=== PATIENT | male | born 1955 | race Caucasian/White ===

== ENCOUNTER 2020-02-25 14:13 | Inpatient (IN) | payer MEDICARE, SELFPAY ==
[2020-02-27 03:21] VITALS: BMI 21.8
[2020-02-27] MEDS: 0.9 % Sodium Chloride 1,000 ML 100 ML IVCONT (10:00)
[2020-02-27] MEDS: vancomycin HCL 1,000 MG in 0.9 % Sodium Chloride 250 ML 180 MG IV (11:10)
[2020-02-28] VITALS (7 sets, daily range): BP systolic 132–159; BP diastolic 64–78; PULSE 67–73; RESP 18–20; TEMP 36.5–37.2; O2SAT 95–98
[2020-02-28] MEDS: Piperacillin Sodium/Tazobactam 3.375 GM in 0.9 % Sodium Chloride 50 ML IV ×5 (01:15→23:43)
[2020-02-28] MEDS: oxyCODONE HCl Immed Release 5 MG TABLET 10 MG PO ×5 (01:15→20:30)
[2020-02-28] MEDS: Gabapentin 300 MG CAPSULE PO ×3 (01:15→17:40)
[2020-02-28] MEDS: Heparin Sodium,Porcine 5,000 UNIT/ML VIAL 5000 UNIT SUBCUT ×2 (06:30→19:09)
[2020-02-28] MEDS: 0.9 % Sodium Chloride 1,000 ML 100 ML IVCONT ×2 (09:25→20:15)
[2020-02-28] MEDS: 0.9 % Sodium Chloride Flush 3 ML SYRINGE 2 ML IVFLUSH ×2 (09:26→17:42)
--- NOTE | 2020-02-28 13:13 | PM.IMPN ---
Subjective Subjective Date of Service: 02/28/20 Interval History: seen and examined foot pain but otherwise okay would like to go home (over going to SNF) Constitutional Constitutional: Denies chills and Denies fever(s) ENT Ears, Nose, Mouth, and Throat: Denies neck pain Cardiovascular Cardiovascular: Denies chest pain and Denies dyspnea Respiratory Respiratory: Denies cough and Denies dyspnea Gastrointestinal Gastrointestinal: Denies abdominal pain, Denies diarrhea and Denies nausea Musculoskeletal Musculoskeletal: Denies neck pain Neurologic Neurologic: Denies focal weakness Physical Exam Vital Signs and I&O and Narrative: Vital Signs and I&O: Vital Signs Temp 97.7 F 02/28/20 11:37 Pulse 67 02/28/20 11:37 Resp 18 02/28/20 11:37 BP 159/75 H 02/28/20 11:37 Pulse Ox 98 02/28/20 11:37 Intake & Output 02/27/20 02/28/20 02/28/20 18:59 06:59 18:59 Intake Total 1440 / 1440 530 / 530 Output Total 350 / 350 Balance 1090 / 1090 530 / 530 Urine Output (Aver age ml/kg/hr) 0.42 0.42 Intake: Intake, Oral [place] unt 120 / 120 480 / 480 Intake, IV Amoun t 1320 / 1320 50 / 50 Piperacillin S odium/Tazobactam 50 / 50 50 / 50 3.375 gm In 0. 9 % Sodium Chloride 50 ml @ 100 mls/hr IV Q6H [facility] Rx#:[id number] vancomycin HCL 1,000 mg In 0.9 270 / 270 % Sodium Chlor skyla 250 ml @ 180 mls/hr IV Q12H [facility] Rx#: [id number] 0.9 % Sodium C hloride 1,000 ml 1000 / 1000 @ 100 mls/hr I VCONT .Q10H [facility] Rx#:[id number] Output: Output, Urine Am ount 350 / 350 Other: Meal Refused No NPO No Breakfast % Eate n 25% Lunch % Eaten 100% Urine Urinal Urine Color Pale Yellow Body Mass Index 21.8 Const: General: cooperative, healthy appearing and no acute distress Eyes: Pupils: Equal, round and reactive pupils present Neck: Neck: Yes supple Chest: Chest palpation & inspection: normal inspection of the chest Resp: Effort & Inspection: normal respiratory effort and able to speak in complete sentences Auscultation: clear to auscultation bilaterally Cardio: Jugular venous distension: no JVD Rhythm: regular rhythm Heart sounds: S1 normal heart sound present and S2 normal heart sound present GI: Inspection: Yes normal to inspection Palpation (GI): Soft to palpation Auscultation: normal bowel sounds Skin: Full body images: 1. wound Neuro: Cranial nerves: Yes Equal, round and reactive pupils present Motor exam (neuro): Other motor observations present ( no motor deficit) Objective Data Current Medications Generic Name Dose Route Start Last Admin Trade Name Freq PRN Reason Stop Dose Admin Acetaminophen 650 mg 02/28/20 00:00 Acetaminophen 325 Mg Tablet PO Q6H PRN Pain,Mild(Scale 1-3)/Fever Aspirin 81 mg 02/28/20 18:00 Aspirin Enteric Coated 81 Mg Tablet.Dr PO DAILY@1800 [facility] Gabapentin 300 mg 02/28/20 02:00 02/28/20 09:22 Gabapentin 300 Mg Capsule PO 300 mg TID@0200,1000,1800 [facility] Administration Heparin Sodium (Porcine) 5,000 unit 02/28/20 07:00 02/28/20 06:30 Heparin Sodium,Porcine 5,000 Unit/Ml Vial SUBCUT 5,000 unit Q12H [facility] Administration Piperacillin Sod/Tazobactam 50 mls @ 100 mls/hr 02/28/20 07:00 02/28/20 09:16 Sod 3.375 gm/ Sodium Chloride IV Infused Q6H [facility] Infusion Vancomycin HCl 1,000 mg/ 270 mls @ 180 mls/hr 02/28/20 00:00 02/28/20 05:58 Sodium Chloride IV Infused Q12H [facility] Infusion Sodium Chloride 1,000 mls @ 100 mls/hr 02/28/20 00:00 02/28/20 09:25 Ns IVCONT 100 mls/hr .Q10H [facility] Administration Lisinopril 30 mg 02/28/20 19:00 Lisinopril 10 Mg Tablet PO DAILY@1900 [facility] Protocol Morphine Sulfate 4 mg 02/28/20 12:14 Morphine Sulfate 4 Mg/Ml Cartridge IVPUSH Q3H PRN Pain, Severe (Pain Scale 7-10) Naloxone HCl 0.2 mg 02/28/20 00:00 Naloxone Hcl 0.4 Mg/Ml Vial IVPUSH Q2M PRN Excessive sedation or RR < 8 Ondansetron HCl 4 mg 02/28/20 00:00 Ondansetron Hcl 4 Mg/2 Ml Vial IVPUSH Q8H PRN Nausea and Vomiting Oxycodone HCl 5 mg 02/28/20 13:11 Oxycodone Hcl Immed Release 5 Mg Tablet PO Q4H PRN Pain, Moderate (Pain Scale 4-6 Oxycodone HCl 10 mg 02/28/20 02:00 02/28/20 09:24 Oxycodone Hcl Immed Release 5 Mg Tablet PO 10 mg TID@0200,1000,1800 [facility] Administration Oxycodone HCl 10 mg 02/28/20 00:01 Oxycodone Hcl Immed Release 5 Mg Tablet PO Q4H PRN Pain, Severe (Pain Scale 7-10) Senna 17.2 mg 02/28/20 00:00 Sennosides 8.6 Mg Tablet PO BEDTIME PRN Constipation Sodium Chloride 2 ml 02/28/20 00:00 02/28/20 09:26 0.9 % Sodium Chloride Flush 3 Ml Syringe IVFLUSH 2 ml QSHIFT [facility] Administration Labs CBC & Chem 7: 02/27/20 05:59 02/27/20 05:59 Labs: Laboratory Results - last 24 hr 02/25/20 02/25/20 02/25/20 10:49 10:49 10:49 MCV 94.5 MCH 31.4 MCHC 33.2 RDW Coeff of Mihir 12.6 Plt Count 260 MPV 9.9 Immature Gran % (Auto) 0.4 Neut % (Auto) 71.0 Lymph % (Auto) 15.5 L Richardson % (Auto) 7.9 Eos % (Auto) 4.1 H Baso % (Auto) 1.1 Abs Immat Gran (auto) 0.03 Absolute Lymphs (auto) 1.2 Absolute Monos (auto) 0.6 Absolute Eos (auto) 0.3 Absolute Basos (auto) 0.1 Absolute Nucleated RBC 0.000 Nucleated RBC % (auto) 0.0 Absolute Neutrophils 5.4 ESR PT INR APTT Bicarbonate 28 Anion Gap 15 Estimated Creat Clear 75.4 Est GFR (Non-Af Amer) > 60 Random Glucose 100 Fasting Glucose Lactic Acid 1.1 Calcium C-Reactive Protein 0.21 Vancomycin Trough 02/25/20 02/25/20 02/26/20 10:49 10:49 06:07 MCV MCH MCHC RDW Coeff of Mihir Plt Count MPV Immature Gran % (Auto) Neut % (Auto) Lymph % (Auto) Richardson % (Auto) Eos % (Auto) Baso % (Auto) Abs Immat Gran (auto) Absolute Lymphs (auto) Absolute Monos (auto) Absolute Eos (auto) Absolute Basos (auto) Absolute Nucleated RBC Nucleated RBC % (auto) Absolute Neutrophils ESR 9 PT 11.9 INR 1.0 APTT 33.1 Bicarbonate 29 Anion Gap 14 Estimated Creat Clear 61.9 Est GFR (Non-Af Amer) > 60 Random Glucose Fasting Glucose 94 Lactic Acid Calcium 9.1 C-Reactive Protein Vancomycin Trough 02/26/20 02/26/20 02/27/20 06:07 22:42 05:59 MCV 95.2 MCH 31.2 MCHC 32.8 RDW Coeff of Mihir 12.6 Plt Count 224 MPV 10.0 Immature Gran % (Auto) 0.2 Neut % (Auto) 48.5 Lymph % (Auto) 31.6 Richardson % (Auto) 10.1 Eos % (Auto) 8.0 H Baso % (Auto) 1.6 Abs Immat Gran (auto) 0.01 Absolute Lymphs (auto) 1.9 Absolute Monos (auto) 0.6 Absolute Eos (auto) 0.5 H Absolute Basos (auto) 0.1 Absolute Nucleated RBC 0.000 Nucleated RBC % (auto) 0.0 Absolute Neutrophils 3.0 ESR PT INR APTT Bicarbonate 28 Anion Gap 14 Estimated Creat Clear 65.2 Est GFR (Non-Af Amer) > 60 Random Glucose 87 Fasting Glucose Lactic Acid Calcium C-Reactive Protein Vancomycin Trough 14.8 02/27/20 02/27/20 05:59 05:59 MCV 96.4 MCH 30.9 MCHC 32.1 RDW Coeff of Mihir 12.5 Plt Count 216 MPV 10.4 Immature Gran % (Auto) 0.3 Neut % (Auto) 49.5 Lymph % (Auto) 30.9 Richardson % (Auto) 9.8 Eos % (Auto) 8.2 H Baso % (Auto) 1.3 Abs Immat Gran (auto) 0.02 Absolute Lymphs (auto) 2.0 Absolute Monos (auto) 0.6 Absolute Eos (auto) 0.5 H Absolute Basos (auto) 0.1 Absolute Nucleated RBC 0.000 Nucleated RBC % (auto) 0.0 Absolute Neutrophils 3.1 ESR PT 10.5 L INR 0.9 APTT 32.4 Bicarbonate Anion Gap Estimated Creat Clear Est GFR (Non-Af Amer) Random Glucose Fasting Glucose Lactic Acid Calcium C-Reactive Protein Vancomycin Trough Progress Note: A&P (1) Osteomyelitis: Status: Acute (2) Peripheral arterial disease: Status: Acute Assessment and Plan: this is a 64-year-old male with a past medical history of PID, hypertension who was admitted for nonhealing wound of the right lower extremity 1. cellulitis/osteomyelitis / nonhealing wound Continue broad-spectrum IV antibiotics MRI showing early osteo, will need long-term antibiotics --- ID input, Consult placed And follow renal function while on vancomycin, follow vanc trough Will place PICC line 2. peripheral arterial disease status post angio with stent placement Continue aspirin vascular input appreciated 3. hypertension Continue home meds full code DVT prophylaxis, heparin
[2020-02-28] MEDS: vancomycin HCL 1,000 MG in 0.9 % Sodium Chloride 250 ML 250 MG IV (14:21)
--- NOTE | 2020-02-28 14:34 | MHC.CM.NN ---
nurse care manger note electronic medical record reviewed along with case discussed on multiple disciplinary rounds. met with patient he is aware that long-term iv antibiotics may be needed and he wiil need pic line placement , per documentation by the wound clinic physician on 02/27/20 (right heel arterial ulcer and has been treated by dr mena at the [facility] wound clinic. he has had revascularization stenting on 02/27/20, and had a mri showed right heel ulcer and early changes in the calcaneus bone cnsistent with ostemyelitis) per hospitlaist sam on final antibiotics recomendations and will need pic line placement discharge plan home with his [address] [facility] in[facility] home infusion referral to [facility] with catalina [phone] and elly mullen als consulted with briana meyer vna spoke with [facility] and they still have availablity for nurwsing to provide teqaching for iv antibiotics . transportation family patient to call pcp for post hospitlaization follow up, folow up with toribio davies i, folow up with dr amaro vascular follow up with [facility]
--- NOTE | 2020-02-28 14:40 | P.PNGS_ITS ---
Subjective Subjective Patient reports: no new complaints and feels better Interval history: patient is status post bilateral iliac artery stenting. He appears to be doing relatively well. Notes that the leg feels somewhat better. He notes that the ulcer site is less painful and tender to him. He is now for postprocedure followup. Physical Exam Vital Signs and I&O and Narrative: Vital Signs and I&O: Vital Signs Temp 97.7 F 02/28/20 11:37 Pulse 67 02/28/20 11:37 Resp 18 02/28/20 11:37 BP 159/75 H 02/28/20 11:37 Pulse Ox 98 02/28/20 11:37 Intake & Output 02/27/20 02/28/20 02/28/20 18:59 06:59 18:59 Intake Total 1440 / 1440 580 / 580 Output Total 350 / 350 300 / 300 Balance 1090 / 1090 280 / 280 Urine Output (Aver age ml/kg/hr) 0.42 0.36 Intake: Intake, Oral [place] unt 120 / 120 480 / 480 Intake, IV Amoun t 1320 / 1320 100 / 100 Piperacillin S odium/Tazobactam 50 / 50 100 / 100 3.375 gm In 0. 9 % Sodium Chloride 50 ml @ 100 mls/hr IV Q6H [facility] Rx#:[id number] vancomycin HCL 1,000 mg In 0.9 270 / 270 % Sodium Chlor skyla 250 ml @ 180 mls/hr IV Q12H [facility] Rx#: [id number] 0.9 % Sodium C hloride 1,000 ml 1000 / 1000 @ 100 mls/hr I VCONT .Q10H [facility] Rx#:[id number] Output: Output, Urine Am ount 350 / 350 300 / 300 Other: Meal Refused No NPO No Breakfast % Eate n 25% Lunch % Eaten 100% Urine Urinal Urine Color Pale Yellow Body Mass Index 21.8 Const: General: cooperative, healthy appearing and comfortable Neck: Neck: Yes normal visual inspection Chest: Chest palpation & inspection: normal inspection of the chest and normal palpation of entire chest wall Resp: Effort & Inspection: normal respiratory effort and able to speak in complete sentences Cardio: Rate: regular rate Rhythm: regular rhythm Heart sounds: S1 normal heart sound present and S2 normal heart sound present Peripheral pulses: other ( Bilateral DP signals) Skin: Wounds: wounds noted ( Achilles ulcer approximately quarter in size with overlying dry eschar and) Neuro: Cranial nerves: Yes CN's II-XII intact bilaterally Extrem: Right lower extremity: normal capillary refill Left lower extremity: normal capillary refill Psych: Appearance: grossly normal Mental Status: mental status grossly normal Progress Note: A&P Assessment and plan (1) Peripheral arterial disease: Status: Acute Assessment and Plan: patient is status post bilateral iliac artery stent placement. Will start patient on Plavix. The patient has tenuous runoff at best on the right lower extremity. He is at high risk for amputation. At the current time will try conservative management with IV antibiotics. He can follow up with us as an outpatient in 2-3 weeks. In addition would recommend [facility] at [facility] if [facility]. (2) Osteomyelitis: Status: Acute Assessment and Plan: Will need long-term IV antibiotics. Also may be a candidate for hyperbaric oxygen therapy as well by the [facility]. Fall Risk Details Current Medications: Current Medications Generic Name Dose Route Start Last Admin Trade Name Freq PRN Reason Stop Dose Admin Acetaminophen 650 mg 02/28/20 00:00 Acetaminophen 325 Mg Tablet PO Q6H PRN Pain,Mild(Scale 1-3)/Fever Aspirin 81 mg 02/28/20 18:00 Aspirin Enteric Coated 81 Mg Tablet.Dr PO DAILY@1800 [facility] Gabapentin 300 mg 02/28/20 02:00 02/28/20 09:22 Gabapentin 300 Mg Capsule PO 300 mg TID@0200,1000,1800 [facility] Administration Heparin Sodium (Porcine) 5,000 unit 02/28/20 07:00 02/28/20 06:30 Heparin Sodium,Porcine 5,000 Unit/Ml Vial SUBCUT 5,000 unit Q12H [facility] Administration Piperacillin Sod/Tazobactam 50 mls @ 100 mls/hr 02/28/20 07:00 02/28/20 14:38 Sod 3.375 gm/ Sodium Chloride IV Infused Q6H [facility] Infusion Vancomycin HCl 1,000 mg/ 270 mls @ 180 mls/hr 02/28/20 00:00 02/28/20 14:21 Sodium Chloride IV 250 mls/hr Q12H [facility] Administration Sodium Chloride 1,000 mls @ 100 mls/hr 02/28/20 00:00 02/28/20 09:25 Ns IVCONT 100 mls/hr .Q10H [facility] Administration Lisinopril 30 mg 02/28/20 19:00 Lisinopril 10 Mg Tablet PO DAILY@1900 [facility] Protocol Morphine Sulfate 4 mg 02/28/20 12:14 Morphine Sulfate 4 Mg/Ml Cartridge IVPUSH Q3H PRN Pain, Severe (Pain Scale 7-10) Naloxone HCl 0.2 mg 02/28/20 00:00 Naloxone Hcl 0.4 Mg/Ml Vial IVPUSH Q2M PRN Excessive sedation or RR < 8 Ondansetron HCl 4 mg 02/28/20 00:00 Ondansetron Hcl 4 Mg/2 Ml Vial IVPUSH Q8H PRN Nausea and Vomiting Oxycodone HCl 5 mg 02/28/20 13:11 Oxycodone Hcl Immed Release 5 Mg Tablet PO Q4H PRN Pain, Moderate (Pain Scale 4-6 Oxycodone HCl 10 mg 02/28/20 02:00 02/28/20 09:24 Oxycodone Hcl Immed Release 5 Mg Tablet PO 10 mg TID@0200,1000,1800 [facility] Administration Oxycodone HCl 10 mg 02/28/20 00:01 02/28/20 14:23 Oxycodone Hcl Immed Release 5 Mg Tablet PO 10 mg Q4H PRN Administration Pain, Severe (Pain Scale 7-10) Senna 17.2 mg 02/28/20 00:00 Sennosides 8.6 Mg Tablet PO BEDTIME PRN Constipation Sodium Chloride 2 ml 02/28/20 00:00 02/28/20 09:26 0.9 % Sodium Chloride Flush 3 Ml Syringe IVFLUSH 2 ml QSHIFT [facility] Administration Time Spent With Patient Time: Total time spent is greater than 50% in coordination of care (as documented) at patient's floor/unit and/or counseling patient: Time with patient: 15 - 24 minutes
[2020-02-28 14:58] LABS: Anion Gap 11 (12-20); Blood Urea Nitrogen 9 mg/dL (9-16); Calcium 8.7 mg/dL (8.4-10.2); Carbon Dioxide 29 mmol/L (22-29); Chloride 105 mmol/L (96-108); Creatinine Clr Calc Pharmacy 81.9; Estimated Glomerular Filt Rate > 60; Glucose Random 88 mg/dL (60-115); Potassium 3.4 mmol/l (3.3-5.1); Sodium 142 mmol/L (135-145)
[2020-02-28 15:02] LABS: Vancomycin Trough 9.3 mcg/mL (10.0-20.0)
[2020-02-28] MEDS: Clopidogrel Bisulfate 75 MG TABLET PO (16:26)
[2020-02-28] MEDS: Aspirin Enteric Coated 81 MG TABLET.DR PO (17:41)
[2020-02-28] MEDS: lisinopriL 10 MG TABLET 30 MG PO (19:22)
[2020-02-28] MEDS: Sennosides 8.6 MG TABLET 17.2 MG PO (20:38)
[2020-02-29] VITALS: BP 147/68; PULSE 75; RESP 17; TEMP 36.3; O2SAT 97
[2020-02-29 00:18] LABS: Vancomycin Trough 15.1 mcg/mL (10.0-20.0)
[2020-02-29] MEDS: vancomycin HCL 1,000 MG in 0.9 % Sodium Chloride 250 ML 180 MG IV (01:02)
[2020-02-29] MEDS: oxyCODONE HCl Immed Release 5 MG TABLET 10 MG PO ×4 (01:06→19:34)
[2020-02-29] MEDS: Gabapentin 300 MG CAPSULE PO ×3 (01:07→19:34)
[2020-02-29 04:00] VITALS: BP 152/69; PULSE 65; RESP 17; TEMP 36.8; TEMP 36.9; O2SAT 98
[2020-02-29] MEDS: Piperacillin Sodium/Tazobactam 3.375 GM in 0.9 % Sodium Chloride 50 ML IV ×2 (06:27→13:34)
[2020-02-29] MEDS: Heparin Sodium,Porcine 5,000 UNIT/ML VIAL 5000 UNIT SUBCUT ×2 (06:27→19:32)
[2020-02-29 08:00] VITALS: BP 162/73; PULSE 73; RESP 18; TEMP 37.2; O2SAT 96
[2020-02-29] MEDS: Clopidogrel Bisulfate 75 MG TABLET PO (09:42)
[2020-02-29 11:37] VITALS: BP 146/69; PULSE 68; RESP 18; TEMP 37; O2SAT 98
--- NOTE | 2020-02-29 11:56 | P.PNGS_ITS ---
Subjective Subjective Patient reports: no new complaints and still having pain Interval history: patient with nonhealing right lower extremity ulcer. He has had no interval issues. States that foot feels better and continues to have pain but is improved from prior. He does have underlying osteomyelitis. He is scheduled for PICC line placement. Physical Exam Vital Signs and I&O and Narrative: Vital Signs and I&O: Vital Signs Temp 98.6 F 02/29/20 11:37 Pulse 68 02/29/20 11:37 Resp 18 02/29/20 11:37 BP 146/69 H 02/29/20 11:37 Pulse Ox 98 02/29/20 11:37 Intake & Output 02/28/20 02/29/20 02/29/20 18:59 06:59 18:59 Intake Total 850 / 3546.667 2696.667 / 3546.66 7 50 / 50 Output Total 300 / 2000 1700 / 2000 Balance 550 / 1546.667 996.667 / 1546.667 50 / 50 Urine Output (Aver age ml/kg/hr) 0.36 0.48 0.48 Intake: Intake, Oral [place] unt 480 / 1080 600 / 1080 Intake, IV Amoun t 370 / 2466.667 2096.667 / 2466.66 7 50 / 50 Piperacillin S odium/Tazobactam 100 / 200 100 / 200 50 / 50 3.375 gm In 0. 9 % Sodium Chloride 50 ml @ 100 mls/hr IV Q6H [facility] Rx#:[id number] vancomycin HCL 1,000 mg In 0.9 270 / 540 270 / 540 % Sodium Chlor skyla 250 ml @ 180 mls/hr IV Q12H [facility] Rx#: [id number] 0.9 % Sodium C hloride 1,000 ml 1726.667 / 1726.66 7 @ 100 mls/hr I VCONT .Q10H [facility] Rx#:[id number] Output: Output, Urine Am ount 300 / 700 400 / 700 Output, Stool Am ount 1300 / 1300 Other: Meal Refused No NPO No Breakfast % Eate n 25% Lunch % Eaten 100% Urine Urinal Urine Color Deja Last Bowel Movem ent 02/25/20 Body Mass Index 21.8 Const: General: cooperative, healthy appearing and comfortable Neck: Carotids: no bruits Chest: Chest palpation & inspection: normal inspection of the chest and normal palpation of entire chest wall Resp: Effort & Inspection: normal respiratory effort and able to speak in complete sentences Cardio: Rate: regular rate Heart sounds: S1 normal heart sound present and S2 normal heart sound present Skin: Wounds: wounds noted ( Right lower extremity wound - quarter-size in Achilles area with dry esc) Progress Note: A&P Assessment and plan (1) Peripheral arterial disease: Status: Acute Assessment and Plan: patient has undergone bilateral iliac artery stenting. He will need to be discharged on Plavix 75 mg oral daily. In addition he will need long-term IV antibiotics. I did have an extended discussion with him as the patient has very poor runoff. He is at very high risk of amputation. I am able to the possibly offer him femoral endarterectomy. There is no bypass option possible as he has no named runoff vessels. he can follow up with us in approximately 2-3 weeks time thank you for allowing us to assist in his care. Fall Risk Details Current Medications: Current Medications Generic Name Dose Route Start Last Admin Trade Name Tika PRN Reason Stop Dose Admin Acetaminophen 650 mg 02/28/20 00:00 Acetaminophen 325 Mg Tablet PO Q6H PRN Pain,Mild(Scale 1-3)/Fever Aspirin 81 mg 02/28/20 18:00 02/28/20 17:41 Aspirin Enteric Coated 81 Mg Tablet. PO 81 mg DAILY@1800 [facility] Administration Clopidogrel Bisulfate 75 mg 02/28/20 14:50 02/29/20 09:42 Clopidogrel Bisulfate 75 Mg Tablet PO 75 mg DAILY [facility] Administration Gabapentin 300 mg 02/28/20 02:00 02/29/20 09:42 Gabapentin 300 Mg Capsule PO 300 mg TID@0200,1000,1800 [facility] Administration Heparin Sodium (Porcine) 5,000 unit 02/28/20 07:00 02/29/20 06:27 Heparin Sodium,Porcine 5,000 Unit/Ml Vial SUBCUT 5,000 unit Q12H [facility] Administration Piperacillin Sod/Tazobactam 50 mls @ 100 mls/hr 02/28/20 07:00 02/29/20 07:28 Sod 3.375 gm/ Sodium Chloride IV Infused Q6H [facility] Infusion Vancomycin HCl 1,000 mg/ 270 mls @ 180 mls/hr 02/28/20 00:00 02/29/20 03:02 Sodium Chloride IV Infused Q12H [facility] Infusion Sodium Chloride 1,000 mls @ 100 mls/hr 02/28/20 00:00 02/29/20 06:33 Ns IVCONT 0 mls/hr .Q10H [facility] Infusion Lisinopril 30 mg 02/28/20 19:00 02/28/20 19:22 Lisinopril 10 Mg Tablet PO 30 mg DAILY@1900 [facility] Administration Protocol Morphine Sulfate 4 mg 02/28/20 12:14 Morphine Sulfate 4 Mg/Ml Cartridge IVPUSH Q3H PRN Pain, Severe (Pain Scale 7-10) Naloxone HCl 0.2 mg 02/28/20 00:00 Naloxone Hcl 0.4 Mg/Ml Vial IVPUSH Q2M PRN Excessive sedation or RR < 8 Ondansetron HCl 4 mg 02/28/20 00:00 Ondansetron Hcl 4 Mg/2 Ml Vial IVPUSH Q8H PRN Nausea and Vomiting Oxycodone HCl 5 mg 02/28/20 13:11 Oxycodone Hcl Immed Release 5 Mg Tablet PO Q4H PRN Pain, Moderate (Pain Scale 4-6 Oxycodone HCl 10 mg 02/28/20 02:00 02/29/20 09:41 Oxycodone Hcl Immed Release 5 Mg Tablet PO 10 mg TID@0200,1000,1800 [facility] Administration Oxycodone HCl 10 mg 02/28/20 00:01 02/29/20 06:27 Oxycodone Hcl Immed Release 5 Mg Tablet PO 10 mg Q4H PRN Administration Pain, Severe (Pain Scale 7-10) Senna 17.2 mg 02/28/20 00:00 02/28/20 20:38 Sennosides 8.6 Mg Tablet PO 17.2 mg BEDTIME PRN Administration Constipation Sodium Chloride 2 ml 02/28/20 00:00 02/29/20 08:02 0.9 % Sodium Chloride Flush 3 Ml Syringe IVFLUSH Not Given QSHIFT [facility] Time Spent With Patient Time: Total time spent is greater than 50% in coordination of care (as documented) at patient's floor/unit and/or counseling patient: Time with patient: 25 - 35 minutes
[2020-02-29] MEDS: vancomycin HCL 1,000 MG in 0.9 % Sodium Chloride 250 ML 250 MG IV (12:09)
--- NOTE | 2020-02-29 13:06 | P.CNID_ITS ---
History of Present Illness Data of Consult Primary Care Provider: Aleah Tyler MD HPI He presents with discomfort posterior above Achilles tendon ulcer 1 cm Ulcer was present since June and patient has been using hydrogen peroxide He says ulcer originally started after wearing tight Uggs boots which were gift He has seen Wound Clinic last several weeks and has taken po Keflex 14 days with no improvement He has no fever or chills Review of Systems Review of Systems: Yes all other systems are reviewed and are negative Musculoskeletal: Musculoskeletal: Reports other (pain posterior tib /fib at ulcer site) Neurologic: Denies focal weakness [facility] Past Medical History Medical History (Updated 02/29/20 @ 13:14 by Leesa Patel MD) Peripheral arterial disease Meds Allergies Allergy/AdvReac Type Severity Reaction Status Date / Time ciprofloxacin [From CIPRO] AdvReac Mild WEAKNESS Verified 02/29/20 11:34 ARITHROMYCIN AdvReac Mild WEAKNESS Uncoded 02/29/20 11:34 Home Medications Medication Instructions Recorded Confirmed Type aspirin 81 mg PO DAILY@1800 02/27/20 02/27/20 History cilostazol 100 mg PO BID 02/27/20 02/27/20 History gabapentin 300 mg PO TID 02/27/20 02/27/20 History lisinopril 30 mg PO DAILY 02/27/20 02/27/20 History oxycodone 5 mg PO TID 02/27/20 02/27/20 History Physical Exam Vital Signs and I&O and Narrative: Vital Signs and I&O: Vital Signs Temp 98.6 F 02/29/20 11:37 Pulse 68 02/29/20 11:37 Resp 18 02/29/20 11:37 BP 146/69 H 02/29/20 11:37 Pulse Ox 98 02/29/20 11:37 Intake & Output 02/28/20 02/29/20 02/29/20 18:59 06:59 18:59 Intake Total 850 / 3546.667 2696.667 / 3546.66 7 50 / 50 Output Total 300 / 2000 1700 / 2000 800 / 800 Balance 550 / 1546.667 996.667 / 1546.667 -750 / -750 Urine Output (Aver age ml/kg/hr) 0.36 0.48 0.97 Intake: Intake, Oral Mar unt 480 / 1080 600 / 1080 Intake, IV Amoun t 370 / 2466.667 2096.667 / 2466.66 7 50 / 50 Piperacillin S odium/Tazobactam 100 / 200 100 / 200 50 / 50 3.375 gm In 0. 9 % Sodium Chloride 50 ml @ 100 mls/hr IV Q6H [facility] Rx#:[id number] vancomycin HCL 1,000 mg In 0.9 270 / 540 270 / 540 % Sodium Chlor skyla 250 ml @ 180 mls/hr IV Q12H [facility] Rx#: [id number] 0.9 % Sodium C hloride 1,000 ml 1726.667 / 1726.66 7 @ 100 mls/hr I VCONT .Q10H [facility] Rx#:[id number] Output: Output, Urine Am ount 300 / 700 400 / 700 800 / 800 Output, Stool Am ount 1300 / 1300 Other: Meal Refused No NPO No Breakfast % Eate n 25% Lunch % Eaten 100% Urine Urinal Urinal Urine Color Deja Last Bowel Movem ent 02/25/20 Body Mass Index 21.8 Const: General: cooperative and healthy appearing HENMT: Head: Yes normal to inspection Chest: Chest palpation & inspection: normal inspection of the chest Resp: Effort & Inspection: normal respiratory effort Cardio: Rate: regular rate GI: Inspection: Yes normal to inspection Extrem: Other: area one cm posterior right tib fib above achilles,clear and open Upper/lower leg/hip images: 1. Assessment and Plan (1) Peripheral arterial disease: Problem details: Prior stents and new stent lower extremities Status: Acute F/U Dr Palacios ,Vascular (2) Osteomyelitis: Problem details: non healing Status: Acute I V Ertapenem for 6 weeks
--- NOTE | 2020-02-29 13:32 | MHC.CM.PN ---
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 I EXPLAINED TO HIM THAT INTERVENTIONA RADIOLOGY SETS UP TIME FOR PIC INE PLACEMENT, AFTER THAT HE WILL NEED TO RECIVE THROUGH THE PIC LINE HIS IV ABX, ALSO FINAL ANTIBIOTICS TO BE RECOMENDED AND STILL NEED ABX SCRIPT IN ORDER TO PROCESS , CLINICAL UPDATE CALLED TO [facility] . 02/29/20 1;30PM I CALLED TO INTERVENTIONAL RADIOLGY NO TIME SET FOR THIS PATIENT HE IS A ADD ON FOR PIC LINE PLACEMENT .HE ALSO SERGEI NEED TO RECIVE HIS ABX THROUGH HIS PIC LINE , I STILL NEED THE ABX SCRIPT THEN SEND TO [facility] FOR PROCESSING AND CHECK CO PAY COST TO PATIENT AND TIME OF HOME DELIVERY AT THIS LATE HOUR HE WILL NOT BE DISCHARGED Demetris ROCHE SPOKE WITH HIS AT LENGTH AND REVIEWED THE DISCHARGE PLAN WITH HER , THE FOLLOW UP [facility] PATIENTS SERGEI CALL FOR APPROPRIATE TIME BETWEEN ABX AND HER SCHEDULE DISCHARGE PLAN HOME WITH NEW REFERRAL TO THE [facility] FOR NRUSING PIC LINE CHANGES , ABS DRAWS AND WOUND ASSESSMENT [facility] TO SUPPLY AL ABX /PIC LINE SUPPLIES AND PROVIDE HOME DELIVERY OF THEM DR GUEVARA VASCULAR- T ARRANGE APPT DATE TIME DR COTTON - TO ARRANGE DATE APPT TIME [facility]IENTS [facility] FOR APPOINTMENT DATE /TIME PATIENT ALSO INSTRUCTED TO CALL HIS PCP FOR [facility] WILL NEED SCRIPT FOR WALKER AND PATIENTS IS LOOKING INTO RENTING A WHEELCHAIR ARRANGE FOR DATE TIME OF APPT
[2020-02-29 16:13] VITALS: BP 134/72; PULSE 103; RESP 18; TEMP 37.1; O2SAT 98
--- NOTE | 2020-02-29 16:13 | P.PICC_ITS ---
PICC Line Insertion NPICC Diagnosis: OSTEOMYELITIS Indication: [facility] ANTIBIOTICS Pertinent Labs: REVIEWED Technique: Following informed consent including risks, benefits and alternatives and using sterile technique including cap and mask, sterile gown, glove and drape, the RIGHT arm was prepped and draped in the usual sterile fashion of full barrier technique with CHG. Following completion of [place] Protocol the skin and soft tissues were anesthetized with 1% Lidocaine plain. Using ultrasound guidance, BASILIC vein access was obtained WITH SINGLE ATTEMPT BY THIS RN. Over an 0.018 wire through peel-away sheath, a SINGLE LUMEN 4 INDONESIAN PICC line was positioned. Catheter length is 40 CM internal length, 0 CM external length, for a total trimmed length of 40 CM. The procedure was performed in IR ULTRASOUND. Tip verification was performed by Melchor Alston with Sandra 3CG. Tip located in SVC. Ultrasound was used to document vein patency and for needle entry. A formal ultrasound picture and cardiac rhythm strip was recorded. Vascular Machine Or Machinery Mechanic has released the line for use and it is currently dressed with a StatLock, Tegaderm, and CHG disc. Verification has been performed for blood return and line patency. Arm Circumference: 29 CM Equipment: [facility] POWER PICC SOLO Catheter Type: SINGLE LUMEN 4 INDONESIAN PICC Lot #: [id number]
--- NOTE | 2020-02-29 16:24 | HO.PM.IMPN ---
Subjective Subjective Date of Service: 02/29/20 Interval History: Persistent pain in the foot. PICC line today Review of Systems Gen: no fever Card: no chest pain GI: No n/v Muscular/sk: Pain in the right foot Physical Exam Vital Signs and I&O and Narrative: Vital Signs and I&O: Vital Signs Temp 98.8 F 02/29/20 16:13 Pulse 103 H 02/29/20 16:13 Resp 18 02/29/20 16:13 BP 134/72 02/29/20 16:13 Pulse Ox 98 02/29/20 16:13 Constitutional Awake and Alert, No apparent distress Neck Supple, No lymphadenopathy Cardiovascular RRR, No M/R/G, S1 S2, No S3 S4, No pedal edema Respiratory Lungs clear, No respiratory distress Gastrointestinal Non tender, Non-distended Skin right heell open wound, the foot is red and shiny and tender Neurological Alert & oriented x3 Psychological Appropriate affect Objective Data Current Medications Generic Name Dose Route Start Last Admin Trade Name Freq PRN Reason Stop Dose Admin Acetaminophen 650 mg 02/28/20 00:00 Acetaminophen 325 Mg Tablet PO Q6H PRN Pain,Mild(Scale 1-3)/Fever Aspirin 81 mg 02/28/20 18:00 02/28/20 17:41 Aspirin Enteric Coated 81 Mg Tablet. PO 81 mg DAILY@1800 [facility] Administration Clopidogrel Bisulfate 75 mg 02/28/20 14:50 02/29/20 09:42 Clopidogrel Bisulfate 75 Mg Tablet PO 75 mg DAILY VANGIE Administration Gabapentin 300 mg 02/28/20 02:00 02/29/20 09:42 Gabapentin 300 Mg Capsule PO 300 mg TID@0200,1000,1800 V[facility]IE Administration Heparin Sodium (Porcine) 5,000 unit 02/28/20 07:00 02/29/20 06:27 Heparin Sodium,Porcine 5,000 Unit/Ml Vial SUBCUT 5,000 unit Q12H VANGIE Administration Sodium Chloride 1,000 mls @ 100 mls/hr 02/28/20 00:00 02/29/20 06:33 Ns IVCONT 0 mls/hr .Q10H VANGIE Infusion Lisinopril 30 mg 02/28/20 19:00 02/28/20 19:22 Lisinopril 10 Mg Tablet PO 30 mg DAILY@1900 [facility] Administration Protocol Morphine Sulfate 4 mg 02/28/20 12:14 Morphine Sulfate 4 Mg/Ml Cartridge IVPUSH Q3H PRN Pain, Severe (Pain Scale 7-10) Naloxone HCl 0.2 mg 02/28/20 00:00 Naloxone Hcl 0.4 Mg/Ml Vial IVPUSH Q2M PRN Excessive sedation or RR < 8 Ondansetron HCl 4 mg 02/28/20 00:00 Ondansetron Hcl 4 Mg/2 Ml Vial IVPUSH Q8H PRN Nausea and Vomiting Oxycodone HCl 5 mg 02/28/20 13:11 Oxycodone Hcl Immed Release 5 Mg Tablet PO Q4H PRN Pain, Moderate (Pain Scale 4-6 Oxycodone HCl 10 mg 02/28/20 02:00 02/29/20 09:41 Oxycodone Hcl Immed Release 5 Mg Tablet PO 10 mg TID@0200,1000,1800 [facility] Administration Oxycodone HCl 10 mg 02/28/20 00:01 02/29/20 06:27 Oxycodone Hcl Immed Release 5 Mg Tablet PO 10 mg Q4H PRN Administration Pain, Severe (Pain Scale 7-10) Senna 17.2 mg 02/28/20 00:00 02/28/20 20:38 Sennosides 8.6 Mg Tablet PO 17.2 mg BEDTIME PRN Administration Constipation Sodium Chloride 2 ml 02/28/20 00:00 02/29/20 08:02 0.9 % Sodium Chloride Flush 3 Ml Syringe IVFLUSH Not Given QSHIFT [facility] Labs CBC & Chem 7: 02/27/20 05:59 02/28/20 13:56 Labs: Laboratory Results - last 24 hr 02/28/20 23:06 Vancomycin Trough 15.1 Assessment and Plan (1) Osteomyelitis: Problem details: non healing Status: Acute (2) Peripheral arterial disease: Problem details: Prior stents and new stent lower extremities Status: Acute Assessment and Plan: 64-year-old male with a past medical history of PID, hypertension who was admitted for nonhealing wound of the right lower extremity 1. cellulitis/osteomyelitis / nonhealing wound Continue broad-spectrum IV antibiotics MRI showing early osteo, will need long-term antibiotics --- ID input, Consult placed DC Vanco and Zosyn for Ertapenem PICC line today and likely home tomorrow, ID reccomend 6 weeks of Abx to follow up with Dr. Palacios and if not improving might need BKA 2. peripheral arterial disease status post angio with stent placement Continue aspirin vascular input appreciated 3. Hypertension Continue home meds full code DVT prophylaxis, heparin
--- NOTE | 2020-02-29 16:37 | MHC.CM.PN ---
nurse caregiver services home received script for invantz 1 gm q 24hrs and faxed to [facility] to run insurqance and check for any co pay to pTMIGUEL PITT LIASON CALLED ME AND INFORMED ME THAT THE COST WOULD BE $[phone] PER WEEK THE HOSPITAIST TO SEE IF HE COULD CHECK WITH DR COTTON TO SEE IF THEY COULD SUBSTITUTE ANOTHER LESS COSTLY MEDICATION CO WORKER INFORMED PATIENT OF THIS , AND I INFORMED airborne weapons technical manager chidi scott up tomorrow
[2020-02-29] MEDS: Ertapenem Sodium 1 GM in 0.9 % Sodium Chloride 50 ML IV (17:10)
[2020-02-29] MEDS: 0.9 % Sodium Chloride Flush 3 ML SYRINGE 2 ML IVFLUSH (17:11)
[2020-02-29] MEDS: 0.9 % Sodium Chloride 1,000 ML 100 ML IVCONT (17:11)
[2020-02-29 19:22] VITALS: BP 153/80; PULSE 88; TEMP 36.5; O2SAT 96
[2020-02-29] MEDS: lisinopriL 10 MG TABLET 30 MG PO (19:32)
[2020-02-29] MEDS: Aspirin Enteric Coated 81 MG TABLET.DR PO (19:33)
[2020-03-01] VITALS (8 sets, daily range): BP systolic 106–168; BP diastolic 57–81; PULSE 65–83; RESP 16–20; TEMP 36.2–36.6; O2SAT 95–97
[2020-03-01 00:19] LABS: Vancomycin Trough 14.8 mcg/mL (10.0-20.0)
[2020-03-01] MEDS: 0.9 % Sodium Chloride Flush 3 ML SYRINGE 2 ML IVFLUSH (00:37)
[2020-03-01] MEDS: Morphine Sulfate 4 MG/ML CARTRIDGE IVPUSH (00:51)
[2020-03-01] MEDS: oxyCODONE HCl Immed Release 5 MG TABLET 10 MG PO ×3 (02:03→18:26)
[2020-03-01] MEDS: Gabapentin 300 MG CAPSULE PO ×3 (02:03→18:27)
--- NOTE | 2020-03-01 04:29 | PC.NURSE ---
Patient refusing IVF at 0430. Patient states he is eating and drinking just fine.
[2020-03-01] MEDS: Heparin Sodium,Porcine 5,000 UNIT/ML VIAL 5000 UNIT SUBCUT ×2 (08:13→18:27)
[2020-03-01] MEDS: Clopidogrel Bisulfate 75 MG TABLET PO (10:02)
--- NOTE | 2020-03-01 11:33 | PM.DS ---
DS: Providers Provider Date of admission: 02/25/20 14:13 Primary care physician: Aleah Tyler MD Consults: 02/27/20 11:17 Consult to Vascular Surgery Routine Consulting Provider: Himanshu Palacios Reason for consultation: PAD, foot wound, advise & treat Has provider been notified: Yes 02/28/20 04:00 Consult to Wound Care Provider Routine Consulting Provider: Tito Almaraz Reason for consultation: Heel Would Has provider been notified: Yes 02/28/20 13:09 Consult to Infectious Diseases Routine Consulting Provider: Leesa Patel Reason for consultation: osteo, needs long ter iv antibiotics DS: Diagnosis Discharge Diagnosis (1) Osteomyelitis: Status: Acute Problem details: non healing (2) Peripheral arterial disease: Status: Acute Problem details: Prior stents and new stent lower extremities DS: Summary Hospital Course Hospital Course: 64-year-old gentleman with past medical history significant for peripheral vascular disease, hypertension admitted to [facility] due to nonhealing wound of right lower extremity workup including an MRI showed early osteomyelitis patient was seen by infectious disease DrChandu Patel she recommend IV ertapenem for total 6 week therefore PICC line has been placed and patient is being discharged home with VNA services patient was also evaluated by Dr. Palacios from vascular surgery he recommend aspirin and Plavix, patient is status post bilateral iliac arteries stenting if there is no improvement in symptoms Dr. Palacios recommend fee moral end arterectomy since there are no bypass option, he feels patient is very high risk for amputation. Patient has been recommended to continue Neurontin and oxycodone for pain he has been recommended to have continued outpatient follow-up at wound clinic and to continue daily dressing as previously ordered. Time Spent with Patient Time attestation: Total time spent providing and/or coordinating discharge services: Time spent: Greater than 30 minutes Physical Exam Vital Signs and I&O and Narrative: Vital Signs and I&O: Vital Signs Temp 97.4 F 03/01/20 08:00 Pulse 76 03/01/20 08:00 Resp 19 03/01/20 08:00 BP 155/73 H 03/01/20 08:00 Pulse Ox 97 03/01/20 08:00 Intake & Output 02/29/20 03/01/20 03/01/20 18:59 06:59 18:59 Intake Total 780 / 2380 1600 / 2380 Output Total 1200 / 2625 1425 / 2625 Balance -420 / -245 175 / -245 Urine Output (Aver age ml/kg/hr) 1.45 1.72 Intake: Intake, Oral Mar unt 360 / 960 600 / 960 Intake, IV Amoun t 420 / 1420 1000 / 1420 Ertapenem Sodi um 1 gm In 0.9 % 50 / 50 Sodium Chlorid e 50 ml @ 100 mls /hr IV ONCE ST A Rx#:[id number] Piperacillin S odium/Tazobactam 100 / 100 3.375 gm In 0. 9 % Sodium Chloride 50 ml @ 100 mls/hr IV Q6H VANGIE Rx#:[id number] vancomycin HCL 1,000 mg In 0.9 270 / 270 % Sodium Chlor skyla 250 ml @ 180 mls/hr IV Q12H VANGIE Rx#: [id number] 0.9 % Sodium C hloride 1,000 ml 0 / 1000 1000 / 1000 @ 100 mls/hr I VCONT .Q10H VANGIE Rx#:[id number] Output: Output, Urine Am ount 1200 / 2625 1425 / 2625 Other: Breakfast % Eate n 100% Lunch % Eaten 100% Dinner % Eaten 50% Urine Urinal Urinal Urine Color Yellow Body Mass Index 21.8 DS: Data Data Completed and Pending Labs on day of discharge: Labs from last 24 hours 02/29/20 23:07 Vancomycin Trough 14.8 Discharge Plan Discharge Patient Disposition: Home Health Service Referrals: Aleah Tyler MD [Primary Care Provider] - Discharge Medications: New ertapenem [Invanz] 1 gram recon soln 1 g IV Q24H Qty: 41 RF: 0 clopidogrel 75 mg Tablet 75 mg PO DAILY Qty: 30 RF: 0 Continued aspirin 81 mg Tablet,Delayed Release (Dr/Ec) 81 mg PO DAILY@1800 RF: 0 gabapentin 300 mg Capsule 300 mg PO TID RF: 0 lisinopril 30 mg Tablet 30 mg PO DAILY RF: 0 oxycodone 5 mg Tablet 5 mg PO TID RF: 0 Discontinued cilostazol 100 mg Tablet 100 mg PO BID RF: 0 Discharge Orders: Discharge Order (Routine); Ordered 03/01/20 Ordered By: Margie Clark Diet: low fat, low cholesterol Activity on Discharge: As tolerated Visit Report Forms: Patient Portal Discharge page Care Plan Goals: as per discharge plan Health Concerns: as per discharge plan Plan of Treatment: close outpatient follow-up at wound clinic PCP and vascular surgery continue antibiotics ertapenem as prescribed
[2020-03-01] MEDS: Ertapenem Sodium 1 GM in 0.9 % Sodium Chloride 50 ML IV (12:41)
--- NOTE | 2020-03-01 12:41 | MHC.CM.PN ---
PATIENT AND UNABLE TO FINANCE COST OF INVANZ. PER CONVERSATION WITH PHYSICIAN AND ID, PATIENT CAN RECEIVE VANCO BID. KATHY WINN MADE AWARE OF CHANGE. CASE MANAGEMENT AWAITING RX AND FLUSH ORDERS SIGNED. (SIERRA) IS CURRENTLY IN PATIENT ROOM TRYING TO CONVINCE HIM TO GO TO SNF. IMM 03/01 IN CHART
[2020-03-01] MEDS: 0.9 % Sodium Chloride 1,000 ML 100 ML IVCONT (13:37)
--- NOTE | 2020-03-01 14:55 | MHC.CM.PN ---
CHANGE OF DISCHARGE PLAN- PATIENT REFUSING SNF, AND UNABLE TO PAY FOR INVANZ OR VANCO PATIENT AGREES TO REMAIN HERE FOR TREATMENT, AND HAVE A CONSULT WITH VASCULAR SURGEON ON TUESDAY.
--- NOTE | 2020-03-01 18:04 | P.PNIM_ITS ---
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 CVS no chest pain no palpitation. Respiratory no cough no shortness of breath Physical Exam Vital Signs and I&O and Narrative: Vital Signs and I&O: Vital Signs Temp 97.8 F 03/01/20 16:00 Pulse 75 03/01/20 16:00 Resp 18 03/01/20 16:00 BP 147/75 H 03/01/20 16:00 Pulse Ox 97 03/01/20 16:00 Intake & Output 02/29/20 03/01/20 03/01/20 18:59 06:59 18:59 Intake Total 780 / 2380 1600 / 2380 290 / 290 Output Total 1200 / 2625 1425 / 2625 Balance -420 / -245 175 / -245 290 / 290 Urine Output (Aver age ml/kg/hr) 1.45 1.72 1.72 Intake: Intake, Oral [place] unt 360 / 960 600 / 960 240 / 240 Intake, IV Amoun t 420 / 1420 1000 / 1420 50 / 50 Ertapenem Sodi um 1 gm In 0.9 % 50 / 50 50 / 50 Sodium Chlorid e 50 ml @ 100 mls /hr IV ONCE ON E Rx#:[id number] Piperacillin S odium/Tazobactam 100 / 100 3.375 gm In 0. 9 % Sodium Chloride 50 ml @ 100 mls/hr IV Q6H [facility]ANGIE Rx#:[id number] vancomycin HCL 1,000 mg In 0.9 270 / 270 % Sodium Chlor skyla 250 ml @ 180 mls/hr IV Q12H VANGIE Rx#: [id number] 0.9 % Sodium C hloride 1,000 ml 0 / 1000 1000 / 1000 @ 100 mls/hr I VCONT .Q10H [facility]ANGIE Rx#:[id number] Output: Output, Urine Am ount 1200 / 2625 1425 / 2625 Other: Breakfast % Eate n 100% Lunch % Eaten 100% 100% Dinner % Eaten 50% Urine Urinal Urinal Urine Color Yellow Body Mass Index 21.8 Constitutional Awake and Alert, No apparent distress Neck Supple, No lymphadenopathy Cardiovascular RRR, No M/R/G, S1 S2, No S3 S4, No pedal edema Respiratory Lungs clear, No respiratory distress Gastrointestinal Non tender, Non-distended Skin right heell open wound, no drainage, foot is red nontender Neurological Alert & oriented x3 Psychological Appropriate affect Objective Data Current Medications Generic Name Dose Route Start Last Admin Trade Name Daydayq PRN Reason Stop Dose Admin Acetaminophen 650 mg 02/28/20 00:00 Acetaminophen 325 Mg Tablet PO Q6H PRN Pain,Mild(Scale 1-3)/Fever Aspirin 81 mg 02/28/20 18:00 02/29/20 19:33 Aspirin Enteric Coated 81 Mg Tablet.Dr PO 81 mg DAILY@1800 [facility] Administration Clopidogrel Bisulfate 75 mg 02/28/20 14:50 03/01/20 10:02 Clopidogrel Bisulfate 75 Mg Tablet PO 75 mg DAILY VANGIE Administration Gabapentin 300 mg 02/28/20 02:00 03/01/20 10:02 Gabapentin 300 Mg Capsule PO 300 mg TID@0200,1000,1800 [facility] Administration Heparin Sodium (Porcine) 5,000 unit 02/28/20 07:00 03/01/20 08:13 Heparin Sodium,Porcine 5,000 Unit/Ml Vial SUBCUT 5,000 unit Q12H VANGIE Administration Sodium Chloride 1,000 mls @ 100 mls/hr 02/28/20 00:00 03/01/20 13:37 Ns IVCONT 100 mls/hr .Q10H VANGIE Administration Lisinopril 30 mg 02/28/20 19:00 02/29/20 19:32 Lisinopril 10 Mg Tablet PO 30 mg DAILY@1900 [facility] Administration Protocol Morphine Sulfate 4 mg 02/28/20 12:14 03/01/20 00:51 Morphine Sulfate 4 Mg/Ml Cartridge IVPUSH 4 mg Q3H PRN Administration Pain, Severe (Pain Scale 7-10) Naloxone HCl 0.2 mg 02/28/20 00:00 Naloxone Hcl 0.4 Mg/Ml Vial IVPUSH Q2M PRN Excessive sedation or RR < 8 Ondansetron HCl 4 mg 02/28/20 00:00 Ondansetron Hcl 4 Mg/2 Ml Vial IVPUSH Q8H PRN Nausea and Vomiting Oxycodone HCl 5 mg 02/28/20 13:11 Oxycodone Hcl Immed Release 5 Mg Tablet PO Q4H PRN Pain, Moderate (Pain Scale 4-6 Oxycodone HCl 10 mg 02/28/20 02:00 03/01/20 10:03 Oxycodone Hcl Immed Release 5 Mg Tablet PO 10 mg TID@0200,1000,1800 [facility] Administration Oxycodone HCl 10 mg 02/28/20 00:01 02/29/20 06:27 Oxycodone Hcl Immed Release 5 Mg Tablet PO 10 mg Q4H PRN Administration Pain, Severe (Pain Scale 7-10) Senna 17.2 mg 02/28/20 00:00 02/28/20 20:38 Sennosides 8.6 Mg Tablet PO 17.2 mg BEDTIME PRN Administration Constipation Sodium Chloride 2 ml 02/28/20 00:00 03/01/20 15:30 0.9 % Sodium Chloride Flush 3 Ml Syringe IVFLUSH Not Given QSHIFT [facility] Labs CBC & Chem 7: 02/27/20 05:59 02/28/20 13:56 Labs: Laboratory Results - last 24 hr 02/29/20 23:07 Vancomycin Trough 14.8 Assessment and Plan (1) Osteomyelitis: Problem details: non healing Status: Acute (2) Peripheral arterial disease: Problem details: Prior stents and new stent lower extremities Status: Acute Assessment and Plan: 64-year-old male with a past medical history of PID, hypertension who was admitted for nonhealing wound of the right lower extremity 1. cellulitis/osteomyelitis / nonhealing wound patient currently receiving IV ertapenem and was scheduled to be discharged home today for total 6 weeks of IV ertapenem but due to the high cost of antibiotic patient is unable to pay therefore vancomycin was prescribed it is still very costly 300 dollars a week for vancomycin therefore patient refused IV antibiotics therefore will cancel discharge for today will continue current a ntibiotic and will reassess treatment plan with Dr. Palacios and Infectious Disease MRI showing early osteo PICC line placed yesterday 2. peripheral arterial disease status post angio with stent placement Continue aspirin and Plavix 3. Hypertension Continue home meds full code DVT prophylaxis, heparin
[2020-03-01] MEDS: Aspirin Enteric Coated 81 MG TABLET.DR PO (18:26)
[2020-03-01] MEDS: lisinopriL 10 MG TABLET 30 MG PO (18:27)
[2020-03-02] VITALS (8 sets, daily range): BP systolic 132–157; BP diastolic 63–80; PULSE 56–88; RESP 16–20; TEMP 36.7–37.5; O2SAT 95–99
[2020-03-02] MEDS: oxyCODONE HCl Immed Release 5 MG TABLET 10 MG PO ×3 (01:57→18:33)
[2020-03-02] MEDS: Gabapentin 300 MG CAPSULE PO ×3 (01:58→18:33)
[2020-03-02] MEDS: Heparin Sodium,Porcine 5,000 UNIT/ML VIAL 5000 UNIT SUBCUT ×2 (06:26→18:41)
[2020-03-02] MEDS: Clopidogrel Bisulfate 75 MG TABLET PO (08:34)
[2020-03-02 09:43] LABS: Vancomycin Trough 3.4 mcg/mL (10.0-20.0)
[2020-03-02] MEDS: vancomycin HCL 1,000 MG in 0.9 % Sodium Chloride 250 ML 180 MG IV ×2 (09:58→20:41)
[2020-03-02] MEDS: Sennosides 8.6 MG TABLET 17.2 MG PO (10:07)
--- NOTE | 2020-03-02 13:50 | HO.PM.IMPN ---
Subjective Subjective Interval History: patient offers no acute complaints very much concerned about his antibiotic coverage for home use by insurance since he is unable to afford high co-pay for both ertapenem and vanco, no overnight fever chills no complain of pain. Review of systems ED TECH no headache, no dizziness. CVS no chest pain no palpitation. Respiratory no cough no shortness of breath Physical Exam Vital Signs and I&O and Narrative: Vital Signs and I&O: Vital Signs Temp 98.5 F 03/02/20 12:00 Pulse 67 03/02/20 12:00 Resp 18 03/02/20 12:00 BP 157/74 H 03/02/20 12:00 Pulse Ox 99 03/02/20 12:00 Intake & Output 03/01/20 03/02/20 03/02/20 18:59 06:59 18:59 Intake Total 290 / 1093.333 803.333 / 1093.333 270 / 270 Output Total 300 / 900 600 / 900 Balance -10 / 193.333 203.333 / 193.333 270 / 270 Urine Output (Aver age ml/kg/hr) 0.36 0.73 0.73 Intake: Intake, Oral [place] unt 240 / 480 240 / 480 Intake, IV Amoun t 50 / 613.333 563.333 / 613.333 270 / 270 Ertapenem Sodi um 1 gm In 0.9 % 50 / 50 Sodium Chlorid e 50 ml @ 100 mls /hr IV ONCE ON E Rx#:[id number] vancomycin HCL 1,000 mg In 0.9 270 / 270 % Sodium Chlor skyla 250 ml @ 180 mls/hr IV Q12H [facility]IE Rx#: [id number] 0.9 % Sodium C hloride 1,000 ml 563.333 / 563.333 @ 100 mls/hr I VCONT .Q10H VANGIE Rx#:[id number] Output: Output, Urine Am ount 300 / 900 600 / 900 Other: Lunch % Eaten 100% Number of Unmeas ured Voids 1 Body Mass Index 21.8 Constitutional Awake and Alert, No apparent distress Neck Supple, No lymphadenopathy Cardiovascular RRR, No M/R/G, S1 S2, No S3 S4, No pedal edema Respiratory Lungs clear, No respiratory distress Gastrointestinal Non tender, Non-distended Skin right heel open wound, no drainage, foot is red nontender Neurological Alert & oriented x3 Psychological Appropriate affect Objective Data Current Medications Generic Name Dose Route Start Last Admin Trade Name Tika PRN Reason Stop Dose Admin Acetaminophen 650 mg 02/28/20 00:00 Acetaminophen 325 Mg Tablet PO Q6H PRN Pain,Mild(Scale 1-3)/Fever Aspirin 81 mg 02/28/20 18:00 03/01/20 18:26 Aspirin Enteric Coated 81 Mg Tablet.Dr PO 81 mg DAILY@1800 [facility] Administration Clopidogrel Bisulfate 75 mg 02/28/20 14:50 03/02/20 08:34 Clopidogrel Bisulfate 75 Mg Tablet PO 75 mg DAILY VANGIE Administration Gabapentin 300 mg 02/28/20 02:00 03/02/20 09:19 Gabapentin 300 Mg Capsule PO 300 mg TID@0200,1000,1800 [facility] Administration Heparin Sodium (Porcine) 5,000 unit 02/28/20 07:00 03/02/20 06:26 Heparin Sodium,Porcine 5,000 Unit/Ml Vial SUBCUT 5,000 unit Q12H [facility]ANGIE Administration Vancomycin HCl 1,000 mg/ 270 mls @ 180 mls/hr 03/02/20 09:00 03/02/20 12:05 Sodium Chloride IV Infused Q12H [facility]ANGIE Infusion Lisinopril 30 mg 02/28/20 19:00 03/01/20 18:27 Lisinopril 10 Mg Tablet PO 30 mg DAILY@1900 [facility] Administration Protocol Morphine Sulfate 4 mg 02/28/20 12:14 03/01/20 00:51 Morphine Sulfate 4 Mg/Ml Cartridge IVPUSH 4 mg Q3H PRN Administration Pain, Severe (Pain Scale 7-10) Naloxone HCl 0.2 mg 02/28/20 00:00 Naloxone Hcl 0.4 Mg/Ml Vial IVPUSH Q2M PRN Excessive sedation or RR < 8 Ondansetron HCl 4 mg 02/28/20 00:00 Ondansetron Hcl 4 Mg/2 Ml Vial IVPUSH Q8H PRN Nausea and Vomiting Oxycodone HCl 5 mg 02/28/20 13:11 Oxycodone Hcl Immed Release 5 Mg Tablet PO Q4H PRN Pain, Moderate (Pain Scale 4-6 Oxycodone HCl 10 mg 02/28/20 02:00 03/02/20 09:19 Oxycodone Hcl Immed Release 5 Mg Tablet PO 10 mg TID@0200,1000,1800 [facility] Administration Oxycodone HCl 10 mg 02/28/20 00:01 02/29/20 06:27 Oxycodone Hcl Immed Release 5 Mg Tablet PO 10 mg Q4H PRN Administration Pain, Severe (Pain Scale 7-10) Senna 17.2 mg 02/28/20 00:00 03/02/20 10:07 Sennosides 8.6 Mg Tablet PO 17.2 mg BEDTIME PRN Administration Constipation Sodium Chloride 2 ml 02/28/20 00:00 03/02/20 08:35 0.9 % Sodium Chloride Flush 3 Ml Syringe IVFLUSH Not Given QSHIFT [facility] Labs CBC & Chem 7: 02/27/20 05:59 02/28/20 13:56 Labs: Laboratory Results - last 24 hr 03/02/20 08:37 Vancomycin Trough 3.4 L Assessment and Plan (1) Osteomyelitis: Problem details: non healing Status: Acute (2) Peripheral arterial disease: Problem details: Prior stents and new stent lower extremities Status: Acute Assessment and Plan: 64-year-old male with a past medical history of PID, hypertension who was admitted for nonhealing wound of the right lower extremity 1. cellulitis/osteomyelitis / nonhealing wound placed patient on IV vancomycin, he was scheduled to be discharged home on 03/01 for total 6 weeks of IV ertapenem but due to the high cost of antibiotic patient is unable to afford high co-pays for both ertapenem and vancomycin therefore will discuss case with Dr. Palacios,ID and social sciences professor tomorrow morning for other treatment option including rehab placement for IV antibiotic versus endarterectomy versus amputation with Dr. Palacios will monitor BMP CBC and Vanco trough. MRI showing early osteo PICC line placed yesterday 2. peripheral arterial disease status post angio with stent placement Continue aspirin and Plavix 3. Hypertension Continue home meds Few high readings likely due to stress will follow full code DVT prophylaxis, heparin
[2020-03-02] MEDS: Aspirin Enteric Coated 81 MG TABLET.DR PO (18:34)
[2020-03-02] MEDS: lisinopriL 10 MG TABLET 30 MG PO (18:36)
[2020-03-02] MEDS: 0.9 % Sodium Chloride Flush 3 ML SYRINGE 2 ML IVFLUSH (18:38)
[2020-03-03] VITALS (8 sets, daily range): BP systolic 110–165; BP diastolic 62–80; PULSE 64–90; RESP 16–20; TEMP 36.2–37.2; O2SAT 96–99
[2020-03-03] MEDS: oxyCODONE HCl Immed Release 5 MG TABLET 10 MG PO ×4 (00:11→18:28)
[2020-03-03] MEDS: Gabapentin 300 MG CAPSULE PO ×3 (00:11→18:27)
[2020-03-03] MEDS: 0.9 % Sodium Chloride Flush 3 ML SYRINGE 2 ML IVFLUSH ×2 (01:43→18:27)
[2020-03-03] MEDS: Heparin Sodium,Porcine 5,000 UNIT/ML VIAL 5000 UNIT SUBCUT ×2 (06:16→18:29)
[2020-03-03 06:29] LABS: MANUAL DIFF FLAG NO
[2020-03-03 06:41] LABS: Basophils Absolute Auto 0.1 X10*3/uL (0.0-0.2); Basophils Percent Auto 1.3 % (0-2); Eosinophils Absolute Auto 0.4 X10*3/uL (0.0-0.4); Eosinophils Percent Auto 7.5 % (0-4); Hematocrit 40.3 % (42-52); Hemoglobin 13.2 g/dl (14.0-18.0); Imm Gran Abs Auto 0.02 X10*3/uL (0.00-0.03); Imm Gran Pct Auto 0.4 % (0.0-0.4); Lymphocytes Absolute Auto 1.2 X10*3/uL (1.2-4.9); Lymphocytes Percent Auto 23.1 % (20-40); Mean Corpuscular HGB Conc 32.8 g/dl (31.0-36.0); Mean Corpuscular Hemoglobin 31.1 pg (27.0-33.0); Mean Corpuscular Volume 94.8 fL (80-98); Mean Platelet Volume 10.2 fL (9.4-12.4); Monocytes Absolute Auto 0.6 X10*3/uL (0.1-1.2); Monocytes Percent Auto 10.7 % (2-11); Platelet Count 245 X10*3/uL (160-400); Red Blood Count 4.25 X10*6/uL (4.60-5.80); Red Cell Distribution Width 12.3 % (11.0-16.0); White Blood Count 5.3 X10*3/uL (4.8-10.8)
[2020-03-03 07:49] LABS: Anion Gap 12 (12-20); Blood Urea Nitrogen 16 mg/dL (9-16); Calcium 9.3 mg/dL (8.4-10.2); Carbon Dioxide 29 mmol/L (22-29); Chloride 109 mmol/L (96-108); Estimated Glomerular Filt Rate > 60; Glucose Random 96 mg/dL (60-115); Potassium 4.9 mmol/l (3.3-5.1); Sodium 145 mmol/L (135-145)
[2020-03-03] MEDS: Clopidogrel Bisulfate 75 MG TABLET PO (09:14)
[2020-03-03] MEDS: vancomycin HCL 1,000 MG in 0.9 % Sodium Chloride 250 ML 180 MG IV ×2 (09:14→22:14)
--- NOTE | 2020-03-03 13:44 | HO.VASCPN ---
Subjective Subjective Patient reports: no new complaints and feels better Interval history: Patient seen and examined. Events over the weekend reviewed. No significant interval changes. Now presents for follow-up. there several issues over the weekend regarding antibiotics and subsequent discharge. Now for follow-up. Physical Exam Vital Signs and I&O and Narrative: Vital Signs and I&O: Vital Signs Temp 97.2 F 03/03/20 11:53 Pulse 90 03/03/20 11:53 Resp 20 03/03/20 11:53 BP 135/77 03/03/20 11:53 Pulse Ox 99 03/03/20 11:53 Intake & Output 03/02/20 03/03/20 03/03/20 18:59 06:59 18:59 Intake Total 1230 / 1870 640 / 1870 270 / 270 Balance 1230 / 1870 640 / 1870 270 / 270 Intake: Intake, Oral Mar unt 960 / 1330 370 / 1330 Intake, IV Amoun t 270 / 540 270 / 540 270 / 270 vancomycin HCL 1,000 mg In 0.9 270 / 540 270 / 540 270 / 270 % Sodium Chlor skyla 250 ml @ 180 mls/hr IV Q12H [facility] Rx#: [id number] Other: Meal Refused No NPO No No Breakfast % Eate n 100% Lunch % Eaten 100% Dinner % Eaten 100% 100% Last Bowel Movem ent 03/02/20 Stool Bathroom Body Mass Index 21.8 Const: General: cooperative and healthy appearing HENMT: Head: Yes normal to inspection and Yes No palpable skull fracture present Neck: Neck: Yes normal visual inspection and Yes full ROM Chest: Chest palpation & inspection: normal inspection of the chest and normal palpation of entire chest wall Resp: Effort & Inspection: normal respiratory effort and able to speak in complete sentences Cardio: Jugular venous distension: no JVD Rate: regular rate Heart sounds: S1 normal heart sound present and S2 normal heart sound present Skin: Wounds: wounds noted ( Achilles tendon quarter-size ulcer, erythema decrease) Extrem: Right lower extremity: normal capillary refill Left lower extremity: normal capillary refill Progress Note: A&P Assessment and plan (1) Peripheral arterial disease: Problem details: Prior stents and new stent lower extremities Status: Acute Assessment and Plan: I had an extensive discussion with the patient. Several options were offered to the patient and he refused. Due to his underlying osteomyelitis it is recommended that he does receive long-term antibiotics per Infectious Disease. The exact regimen to be determined by eggs Infectious Disease. He was able to get full therapy and treatment in a rehab facility which he refused. He has requested vancomycin, Which he can receive at home. He will need to be discharged on Plavix 75 mg oral daily. He will see me back in approximately 3 weeks time. I did discuss with him all the ramifications of being noncompliant. In addition he is aware that he is at very high risk of amputation. Once again he will follow up with us in approximately 3 weeks time. Thank you for allowing us to assist in his care. Fall Risk Details Current Medications: Current Medications Generic Name Dose Route Start Last Admin Trade Name Freq PRN Reason Stop Dose Admin Acetaminophen 650 mg 02/28/20 00:00 Acetaminophen 325 Mg Tablet PO Q6H PRN Pain,Mild(Scale 1-3)/Fever Aspirin 81 mg 02/28/20 18:00 03/02/20 18:34 Aspirin Enteric Coated 81 Mg Tablet. PO 81 mg DAILY@1800 [facility] Administration Clopidogrel Bisulfate 75 mg 02/28/20 14:50 03/03/20 09:14 Clopidogrel Bisulfate 75 Mg Tablet PO 75 mg DAILY [facility] Administration Gabapentin 300 mg 02/28/20 02:00 03/03/20 09:13 Gabapentin 300 Mg Capsule PO 300 mg TID@0200,1000,1800 [facility] Administration Heparin Sodium (Porcine) 5,000 unit 02/28/20 07:00 03/03/20 06:16 Heparin Sodium,Porcine 5,000 Unit/Ml Vial SUBCUT 5,000 unit Q12H [facility] Administration Vancomycin HCl 1,000 mg/ 270 mls @ 180 mls/hr 03/02/20 09:00 03/03/20 10:44 Sodium Chloride IV Infused Q12H [facility] Infusion Lisinopril 30 mg 02/28/20 19:00 03/02/20 18:36 Lisinopril 10 Mg Tablet PO 30 mg DAILY@1900 [facility] Administration Protocol Nicotine Polacrilex 2 mg 03/02/20 14:19 Nicotine Polacrilex 2 Mg Gum BUCCAL Q2H PRN Nicotine Cravings Ondansetron HCl 4 mg 02/28/20 00:00 Ondansetron Hcl 4 Mg/2 Ml Vial IVPUSH Q8H PRN Nausea and Vomiting Oxycodone HCl 5 mg 02/28/20 13:11 Oxycodone Hcl Immed Release 5 Mg Tablet PO Q4H PRN Pain, Moderate (Pain Scale 4-6 Oxycodone HCl 10 mg 02/28/20 02:00 03/03/20 09:13 Oxycodone Hcl Immed Release 5 Mg Tablet PO 10 mg TID@0200,1000,1800 [facility] Administration Oxycodone HCl 10 mg 02/28/20 00:01 02/29/20 06:27 Oxycodone Hcl Immed Release 5 Mg Tablet PO 10 mg Q4H PRN Administration Pain, Severe (Pain Scale 7-10) Senna 17.2 mg 02/28/20 00:00 03/02/20 10:07 Sennosides 8.6 Mg Tablet PO 17.2 mg BEDTIME PRN Administration Constipation Sodium Chloride 2 ml 02/28/20 00:00 03/03/20 09:13 0.9 % Sodium Chloride Flush 3 Ml Syringe IVFLUSH Not Given QSHIFT [facility] Time Spent With Patient Time: Total time spent is greater than 50% in coordination of care (as documented) at patient's floor/unit and/or counseling patient: 45 minutes Time with patient: Greater than 35 minutes
--- NOTE | 2020-03-03 14:11 | MHC.CM.PN ---
nurse animal care specialist note electronic medical record reviewed , case discussed on mutliple disciplainry rounds n per hospiltaist patient is medical stable for discharge , barrier was the cost to patiebnt , spoke mirian collins iv vancomycin 1 gm q12hrs , i called to both [facility] kamila arnold and to [facility] tgradaniel liason both checked he insurance and called patient with co pqay cost directly , he choose [facility] lower payement and woked out a financial payement plan, as he wants to go home, informed [facility] of this m they have is script and [facility] and [facility] hoyos , when speaking with terell she informed me they woud try to deliver this to his home as soon as possible , but would not be able to leave until tomorrow am , i informed patient and the hsopitlaist of this , also spoke with velasquez at [facility] a they will need to go out tomorrow around 3pm , spoke to the hospitlaist about readjusting times for earlier vancomycin dose asdminisrtration discharge plan home with pic line fpc iv abx with [facility] , [facility] and lab draws , [facility] vna they will be out there tomrrow 3pm follow up appointments as listed in previous 02/29/20 discharge plqan and on discharge instructions medicare imm updated
--- NOTE | 2020-03-03 14:50 | P.PNIM_ITS ---
Subjective Subjective Interval History: patient offers no acute complaints this a.m. no fever, no chills, no pain patient is agreeable with a plan of going home on vancomycin for total 6 weeks, no overnight fever, chills no complain of pain. Review of systems [employer] no headache, no dizziness. CVS no chest pain no palpitation. Respiratory no cough no shortness of breath Physical Exam Vital Signs and I&O and Narrative: Vital Signs and I&O: Vital Signs Temp 97.2 F 03/03/20 11:53 Pulse 90 03/03/20 11:53 Resp 20 03/03/20 11:53 BP 135/77 03/03/20 11:53 Pulse Ox 99 03/03/20 11:53 Intake & Output 03/02/20 03/03/20 03/03/20 18:59 06:59 18:59 Intake Total 1230 / 1870 640 / 1870 990 / 990 Output Total 5 / 5 Balance 1230 / 1870 640 / 1870 985 / 985 Urine Output (Aver age ml/kg/hr) 0.01 Intake: Intake, Oral [place] unt 960 / 1330 370 / 1330 720 / 720 Intake, IV Amoun t 270 / 540 270 / 540 270 / 270 vancomycin HCL 1,000 mg In 0.9 270 / 540 270 / 540 270 / 270 % Sodium Chlor skyla 250 ml @ 180 mls/hr IV Q12H [facility] Rx#: [id number] Output: Output, Urine Am ount 5 / 5 Other: Meal Refused No NPO No No Breakfast % Eate n 100% 100% Lunch % Eaten 100% 100% Dinner % Eaten 100% 100% Urine Bathroom Last Bowel Movem ent 03/02/20 Stool Bathroom Body Mass Index 21.8 Constitutional Awake and Alert, No apparent distress Neck Supple, No lymphadenopathy Cardiovascular RRR, No M/R/G, S1 S2, No S3 S4, No pedal edema Respiratory Lungs clear, No respiratory distress Gastrointestinal Non tender, Non-distended Skin right heel open wound, no drainage Neurological Alert & oriented x3 Psychological Appropriate affect Objective Data Current Medications Generic Name Dose Route Start Last Admin Trade Name Freq PRN Reason Stop Dose Admin Acetaminophen 650 mg 02/28/20 00:00 Acetaminophen 325 Mg Tablet PO Q6H PRN Pain,Mild(Scale 1-3)/Fever Aspirin 81 mg 02/28/20 18:00 03/02/20 18:34 Aspirin Enteric Coated 81 Mg Tablet.Dr PO 81 mg DAILY@1800 [facility] Administration Clopidogrel Bisulfate 75 mg 02/28/20 14:50 03/03/20 09:14 Clopidogrel Bisulfate 75 Mg Tablet PO 75 mg DAILY [facility] Administration Gabapentin 300 mg 02/28/20 02:00 03/03/20 09:13 Gabapentin 300 Mg Capsule PO 300 mg TID@0200,1000,1800 [facility] Administration Heparin Sodium (Porcine) 5,000 unit 02/28/20 07:00 03/03/20 06:16 Heparin Sodium,Porcine 5,000 Unit/Ml Vial SUBCUT 5,000 unit Q12H [facility] Administration Vancomycin HCl 1,000 mg/ 270 mls @ 180 mls/hr 03/02/20 09:00 03/03/20 10:44 Sodium Chloride IV Infused Q12H [facility] Infusion Lisinopril 30 mg 02/28/20 19:00 03/02/20 18:36 Lisinopril 10 Mg Tablet PO 30 mg DAILY@1900 [facility] Administration Protocol Nicotine Polacrilex 2 mg 03/02/20 14:19 Nicotine Polacrilex 2 Mg Gum BUCCAL Q2H PRN Nicotine Cravings Ondansetron HCl 4 mg 02/28/20 00:00 Ondansetron Hcl 4 Mg/2 Ml Vial IVPUSH Q8H PRN Nausea and Vomiting Oxycodone HCl 5 mg 02/28/20 13:11 Oxycodone Hcl Immed Release 5 Mg Tablet PO Q4H PRN Pain, Moderate (Pain Scale 4-6 Oxycodone HCl 10 mg 02/28/20 02:00 03/03/20 09:13 Oxycodone Hcl Immed Release 5 Mg Tablet PO 10 mg TID@0200,1000,1800 [facility] Administration Oxycodone HCl 10 mg 02/28/20 00:01 03/03/20 13:43 Oxycodone Hcl Immed Release 5 Mg Tablet PO 10 mg Q4H PRN Administration Pain, Severe (Pain Scale 7-10) Senna 17.2 mg 02/28/20 00:00 03/02/20 10:07 Sennosides 8.6 Mg Tablet PO 17.2 mg BEDTIME PRN Administration Constipation Sodium Chloride 2 ml 02/28/20 00:00 03/03/20 09:13 0.9 % Sodium Chloride Flush 3 Ml Syringe IVFLUSH Not Given QSHIFT [facility] Labs CBC & Chem 7: 03/03/20 06:12 03/03/20 06:11 Labs: Laboratory Results - last 24 hr 03/03/20 03/03/20 06:11 06:12 MCV 94.8 MCH 31.1 MCHC 32.8 RDW 12.3 Plt Count 245 MPV 10.2 Immature Gran % (Auto) 0.4 Neut % (Auto) 57.0 Lymph % (Auto) 23.1 [place] % (Auto) 10.7 Eos % (Auto) 7.5 H Baso % (Auto) 1.3 Neut # (Auto) 3.0 Lymph # (Auto) 1.2 [place] # (Auto) 0.6 Eos # (Auto) 0.4 Baso # (Auto) 0.1 Abs Immat Gran (auto) 0.02 Absolute Nucleated RBC 0.000 Nucleated RBC % (auto) 0.0 Anion Gap 12 Estim Creat Clear Calc 76.0 Estimated GFR > 60 Random Glucose 96 Calcium 9.3 Assessment and Plan (1) Osteomyelitis: Problem details: non healing Status: Acute (2) Peripheral arterial disease: Problem details: Prior stents and new stent lower extremities Status: Acute Assessment and Plan: 64-year-old male with a past medical history of PID, hypertension who was admitted for nonhealing wound of the right lower extremity 1. cellulitis/osteomyelitis / nonhealing wound patient will be discharged home on IV vancomycin, 1 g q.i.d. for total 6 weeks of IV antibiotic case workers making arrangements for discharge tomorrow morning, patient seen by Dr. Palacios this morning and he recommend IV antibiotic and to have a follow-up with him in 3 weeks, will monitor BMP, CBC and Vanco trough. MRI showing early osteo, PICC line placed . 2. peripheral arterial disease status post angio with stent placement, Continue aspirin and Plavix 3. Hypertension Continue home meds , BP stable. full code DVT prophylaxis, heparin
[2020-03-03] MEDS: Aspirin Enteric Coated 81 MG TABLET.DR PO (18:27)
[2020-03-03] MEDS: lisinopriL 10 MG TABLET 30 MG PO (18:28)
[2020-03-03 21:22] LABS: Vancomycin Trough 13.3 mcg/mL (10.0-20.0)
[2020-03-04] VITALS (8 sets, daily range): BP systolic 113–160; BP diastolic 64–89; PULSE 62–82; RESP 16–19; TEMP 20.7–36.9; O2SAT 96–98
[2020-03-04] MEDS: 0.9 % Sodium Chloride Flush 3 ML SYRINGE 2 ML IVFLUSH ×3 (00:04→23:51)
[2020-03-04] MEDS: oxyCODONE HCl Immed Release 5 MG TABLET PO ×6 (02:17→21:33)
[2020-03-04] MEDS: Gabapentin 300 MG CAPSULE PO ×3 (02:17→17:39)
[2020-03-04] MEDS: Clopidogrel Bisulfate 75 MG TABLET PO (08:49)
[2020-03-04] MEDS: Heparin Sodium,Porcine 5,000 UNIT/ML VIAL 5000 UNIT SUBCUT ×2 (08:50→21:34)
--- NOTE | 2020-03-04 16:11 | MHC.CM.PN ---
NURSE CLINICAL CASE MANAGER NOTE DISCHARGE PLAN FOR 03/05/2020 6AM DISCHARGE 1. [facility] IV ABX AND ALL RELATED SUPPLIES TO BE DELIVERED TO PATIENT HOME BY THE END OF TODAY CONFIRMED RAVIN SWIFT AT [facility] enrico came and did a teach foir the iv abx, odalis meyer vna spoke with juan carlos arnold they will be out tomorrow 03/05/20 between 8-9am to administer and teach to patient / the abx, medication reconcilatin and health assessment and diagnossi sighn symptom management follow up with :(patients will call the following for appointments as she works and will need to make arrangements ) 1. pcp dr kevin rivera 2. dr [facility] 3. [facility] 4 dr leonardo anguiano i.d hopspitlaist and day evening staff nurse are aware that patient will be picking him up 6-7 am n 03/05/20 and all discharge paper woprk need to be completed by then as the vna will be out fr 8-9 am iv abx.
--- NOTE | 2020-03-04 16:13 | HO.PM.IMPN ---
Subjective Subjective Date of Service: 03/04/20 Interval History: Admitted for nonhealing foot ulcer, patient complaining of right foot pain, no other acute issues overnight, denies shortness of breath ,cough, no fever chills Review of Systems [employer] no headache no dizziness. CVS no chest pain no palpitation. Skin no rash Physical Exam Vital Signs and I&O and Narrative: Vital Signs and I&O: Vital Signs Temp 97.8 F 03/04/20 15:30 Pulse 74 03/04/20 15:30 Resp 18 03/04/20 15:30 BP 152/73 H 03/04/20 15:30 Pulse Ox 98 03/04/20 15:30 Intake & Output 03/03/20 03/04/20 03/04/20 18:59 06:59 18:59 Intake Total 990 / 1380 390 / 1380 1235 / 1235 Output Total Balance 985 / 1362 377 / 1362 1235 / 1235 Urine Output (Aver age ml/kg/hr) 0.01 0.01 0.01 Intake: Intake, Oral Mar unt 720 / 840 120 / 840 960 / 960 Intake, IV Amoun t 270 / 540 270 / 540 275 / 275 vancomycin HCL 1,000 mg In 0.9 270 / 540 270 / 540 % Sodium Chlor skyla 250 ml @ 180 mls/hr IV Q12H [facility] Rx#: [id number] vancomycin HCL 750 mg 275 / 275 vancomycin HCL 500 mg In 0.9 % Sodium Chlorid e 250 ml @ 183. 333 mls/hr IV Q12H [facility] Rx#: [id number] Output: Output, Urine Am ount Output, Stool Am ount Other: Meal Refused No No NPO No Breakfast % Eate n 100% 100% Lunch % Eaten 100% 100% Dinner % Eaten 100% Number of Unmeas ured Voids 2 Number of Bowel Movements 3 Urine Bathroom Bathroom Urine Color Yellow Body Mass Index 21.8 Constitutional Awake and Alert, No apparent distress Neck Supple, No lymphadenopathy Cardiovascular RRR, No M/R/G, S1 S2, No S3 S4, No pedal edema Respiratory Lungs clear, No respiratory distress Gastrointestinal Non tender, Non-distended Skin right heel open wound, no drainage Neurological Alert & oriented x3 Psychological Appropriate affect Objective Data Current Medications Generic Name Dose Route Start Last Admin Trade Name Daydayq PRN Reason Stop Dose Admin Acetaminophen 650 mg 02/28/20 00:00 Acetaminophen 325 Mg Tablet PO Q6H PRN Pain,Mild(Scale 1-3)/Fever Aspirin 81 mg 02/28/20 18:00 03/03/20 18:27 Aspirin Enteric Coated 81 Mg Tablet. PO 81 mg DAILY@1800 [facility] Administration Clopidogrel Bisulfate 75 mg 02/28/20 14:50 03/04/20 08:49 Clopidogrel Bisulfate 75 Mg Tablet PO 75 mg DAILY [facility] Administration Gabapentin 300 mg 02/28/20 02:00 03/04/20 09:36 Gabapentin 300 Mg Capsule PO 300 mg TID@0200,1000,1800 [facility] Administration Heparin Sodium (Porcine) 5,000 unit 02/28/20 07:00 03/04/20 08:50 Heparin Sodium,Porcine 5,000 Unit/Ml Vial SUBCUT 5,000 unit Q12H [facility] Administration Vancomycin HCl 750 mg/ 275 mls @ 183.333 mls/hr 03/04/20 10:00 03/04/20 11:41 Vancomycin HCl 500 mg/ Sodium IV Infused Chloride Q12H [facility] Infusion Lisinopril 30 mg 02/28/20 19:00 03/03/20 18:28 Lisinopril 10 Mg Tablet PO 30 mg DAILY@1900 [facility] Administration Protocol Nicotine Polacrilex 2 mg 03/02/20 14:19 Nicotine Polacrilex 2 Mg Gum BUCCAL Q2H PRN Nicotine Cravings Ondansetron HCl 4 mg 02/28/20 00:00 Ondansetron Hcl 4 Mg/2 Ml Vial IVPUSH Q8H PRN Nausea and Vomiting Oxycodone HCl 5 mg 03/04/20 14:41 Oxycodone Hcl Immed Release 5 Mg Tablet PO Q4H PRN Pain, Moderate (Pain Scale 4-6 Oxycodone HCl 5 mg 03/04/20 15:00 03/04/20 14:55 Oxycodone Hcl Immed Release 5 Mg Tablet PO 5 mg TID [facility] Administration Senna 17.2 mg 02/28/20 00:00 03/02/20 10:07 Sennosides 8.6 Mg Tablet PO 17.2 mg BEDTIME PRN Administration Constipation Sodium Chloride 2 ml 02/28/20 00:00 03/04/20 08:49 0.9 % Sodium Chloride Flush 3 Ml Syringe IVFLUSH 2 ml QSHIFT [facility] Administration Labs CBC & Chem 7: 03/03/20 06:12 03/03/20 06:11 Labs: Laboratory Results - last 24 hr 03/03/20 20:32 Vancomycin Trough 13.3 Assessment and Plan (1) Osteomyelitis: Problem details: non healing Status: Acute (2) Peripheral arterial disease: Problem details: Prior stents and new stent lower extremities Status: Acute Assessment and Plan: 64-year-old male with a past medical history of PID, hypertension who was admitted for nonhealing wound of the right lower extremity 1. cellulitis/osteomyelitis / nonhealing wound patient will be discharged home on IV vancomycin, 1250mg b.i.d. for total 6 weeks of IV antibiotic case workers making arrangements for discharge tomorrow morning, patient seen by Dr. Palacios he recommended IV antibiotic and to have a follow-up with him in 3 weeks, will monitor BMP, CBC and Vanco trough. due to low Vanco trough yesterday dose was increased from 1 g b.i.d. to 1250 MRI showing early osteo, PICC line placed . will check BMP LFTs q.weekly and check went to Vanco trough before 4th dose with a.m. 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 2. peripheral arterial disease status post angio with stent placement, Continue aspirin and Plavix 3. Hypertension Continue home meds , BP stable. full code DVT prophylaxis, heparin
[2020-03-04] MEDS: Aspirin Enteric Coated 81 MG TABLET.DR PO (17:40)
--- NOTE | 2020-03-04 18:35 | MHC.INPTTRAN ---
PATIENT ADMITTED WITH WOUND CELLULITIS, HAD A PICC LINE PLACED FOR LACQUER MIXER ANTIBIOTICS. RECEIVING VANCOMYCIN 1250MG EVERY 12 HOURS, FOR 38 MORE DAYS. NEEDS LAB WORK WEEKLY WITH A VANCO TROUGH BEFORE FOURTH DOSE.
--- NOTE | 2020-03-04 18:44 | MHC.INPTTRAN ---
PT ADMITTED WITH WOUND AND CELLULITIS, VANCOMYCIN 1250MG TWICE A DAY FOR 38 MORE DAYS. PT HAS A DUEL LUMAN PICC LINE, LAB WORK DUE WEEKLY WITH A VANCO TROUGH BEFORE THE FOURTH DOSE.
[2020-03-04] MEDS: lisinopriL 10 MG TABLET 30 MG PO (20:02)
[2020-03-05] MEDS: Gabapentin 300 MG CAPSULE PO (02:08)
[2020-03-05] MEDS: oxyCODONE HCl Immed Release 5 MG TABLET PO ×2 (02:10→06:43)
--- NOTE | 2020-03-05 16:48 | P.DS_ITS ---
DS: Providers Provider Date of admission: 02/25/20 14:13 Primary care physician: Aleah Tyler MD Consults: 02/27/20 11:17 Consult to Vascular Surgery Routine Consulting Provider: Himanshu Palacios Reason for consultation: PAD, foot wound, advise & treat Has provider been notified: Yes 02/28/20 04:00 Consult to Wound Care Provider Routine Consulting Provider: Tito Almaraz Reason for consultation: Heel Would Has provider been notified: Yes 02/28/20 13:09 Consult to Infectious Diseases Routine Consulting Provider: Leesa Patel Reason for consultation: osteo, needs long ter iv antibiotics DS: Diagnosis Discharge Diagnosis (1) Osteomyelitis: Status: Acute Problem details: non healing (2) Peripheral arterial disease: Status: Acute Problem details: Prior stents and new stent lower extremities DS: Summary Hospital Course Hospital Course: 64-year-old gentleman with past medical history significant for peripheral vascular disease, hypertension admitted to [facility] due to nonhealing wound of right lower extremity workup including an MRI showed early osteomyelitis patient was seen by infectious disease DrChandu Patel she recommend 6 weeks of IV antibiotics therefore patient is being discharged home on IV vancomycin 1250 mg twice daily, last day of IV antibiotic is April 11 more days of vancomycin dispensed, patient has a PICC line placed, patient is being discharged home with VNA services patient was also evaluated by Dr. Palacios from vascular surgery he recommend aspirin and Plavix, patient is status post bilateral iliac arteries stenting if there is no improvement in symptoms Dr. Palacios recommend femoral endarterectomy since there are no bypass option, if patient fails antibiotic treatment then f BKA will be considered. Patient has been recommended to continue Neurontin and oxycodone for pain he has been recommended to have continued outpatient follow-up at wound clinic and to continue daily dressing as previously ordered. Time Spent with Patient Time attestation: Total time spent providing and/or coordinating discharge services: Quality: VTE VTE Discharge Instructions: Follow-up arranged Physical Exam Vital Signs and I&O and Narrative: Vital Signs and I&O: Vital Signs Temp 98.3 F 03/04/20 23:21 Pulse 62 03/04/20 23:21 Resp 18 03/04/20 23:21 BP 155/89 H 03/04/20 23:21 Pulse Ox 97 03/04/20 23:21 Intake & Output 03/04/20 03/05/20 03/05/20 18:59 06:59 18:59 Intake Total 1235 / 2190 955 / 2190 Output Total 900 / 900 Balance 1235 / 1290 55 / 1290 Urine Output (Aver age ml/kg/hr) 1.09 Intake: Intake, Oral Mar unt 960 / 1640 680 / 1640 Intake, IV Amoun t 275 / 550 275 / 550 vancomycin HCL 750 mg 275 / 550 275 / 550 vancomycin HCL 500 mg In 0.9 % Sodium Chlorid e 250 ml @ 183. 333 mls/hr IV Q12H [facility] Rx#: [id number] Output: Output, Urine Am ount 900 / 900 Other: Meal Refused No Breakfast % Eate n 100% Lunch % Eaten 100% Dinner % Eaten 100% Evening Snack % Eaten 100 Urine Bathroom Urine Color Yellow Body Mass Index 21.8 Constitutional Awake and Alert, No apparent distress Neck Supple, No lymphadenopathy Cardiovascular RRR, No M/R/G, S1 S2, No S3 S4, No pedal edema Respiratory Lungs clear, No respiratory distress Gastrointestinal Non tender, Non-distended Skin right heel open wound, no drainage Neurological Alert & oriented x3 Psychological Appropriate affect Discharge Plan Discharge Patient Disposition: Home Health Service Referrals: [facility] [Other] (Supplier for antibiotics and PIC line supplies. They will home deliver.) [facility] [Outside] - 03/05/20 8:00 am ([facility] for IV ABX administration and teaching, PIC line dressing changes and labs) [facility] [Outside] (Please call to schedule.) Aleah Tyler MD [Primary Care Provider] - (Please call to schedule post hospital discharge follow-up appointment.) Leesa Patel MD [Physician] - 1 Week (Please schedule an appointment in 1-2 weeks.) Himanshu Palacios MD [Physician] - 1 Week (Please schedule appointment to be seen in 1-2 weeks.) Discharge Medications: New clopidogrel 75 mg Tablet 75 mg PO DAILY Qty: 30 RF: 0 (DME) walker Misc See Rx Instructions .ROUTE .MEDSUPPLY Qty: 1 RF: 0 vancomycin 1,000 mg recon soln See Rx Instructions .ROUTE .COMPLEX Qty: 76 RF: 0 Continued aspirin 81 mg Tablet,Delayed Release (Dr/Ec) 81 mg PO DAILY@1800 RF: 0 gabapentin 300 mg Capsule 300 mg PO TID RF: 0 lisinopril 30 mg Tablet 30 mg PO DAILY RF: 0 oxycodone 5 mg Tablet 5 mg PO TID RF: 0 Discontinued cilostazol 100 mg Tablet 100 mg PO BID RF: 0 Discharge Orders: Discharge Order (Routine); Ordered 03/05/20 Ordered By: Margie Clark Diet: low fat, low cholesterol Activity on Discharge: As tolerated Discharge Date/Time: 03/05/20 07:03 Visit Report Forms: Patient Portal Discharge page Care Plan Goals: as per discharge plan Health Concerns: as per discharge plan Plan of Treatment: close outpatient follow-up at wound clinic PCP and vascular surgery continue antibiotics ertapenem as prescribed
== END 2020-03-05 07:03 | disposition home health service (06) | DRG 253 ==
PROVIDERS: Family Medicine; Internal Medicine; Admitting Provider Internal Medicine; Emergency Provider Physician Assistant; PCP Family Medicine; Visit Provider Hospitalist
DX: I70.234 Atherosclerosis of native arteries of right leg with ulceration of heel and midfoot (principal); M86.9 Osteomyelitis, unspecified; L03.115 Cellulitis of right lower limb; I70.202 Unspecified atherosclerosis of native arteries of extremities, left leg; L97.419 Non-pressure chronic ulcer of right heel and midfoot with unspecified severity; I10 Essential (primary) hypertension; F17.210 Nicotine dependence, cigarettes, uncomplicated; Z71.6 Tobacco abuse counseling; Z79.82 Long term (current) use of aspirin; Z79.891 Long term (current) use of opiate analgesic; Z79.899 Other long term (current) drug therapy
CPT/HCPCS: 36415; 36573; 37221; 73630; 73720; 75635; 76937; 80048; 80051; 80202; 82565; 82947; 84520; 85025; 85610; 85652; 85730; 86140; 87040; 96365; 96367; 99152; 99153; 99285; A9585; C1725; C1751; C1769; C1876; C1887; C1894; J1335; J2250; J2270; J2543; J3010; J3370; Q9967

== ENCOUNTER → 2020-04-14 10:59 | Outpatient (BNVA) | payer MEDICARE, SELFPAY | PROVIDERS: PCP Family Medicine; Visit Provider Internal Medicine | DX: M86.9 Osteomyelitis, unspecified (principal); I73.9 Peripheral vascular disease, unspecified; Z95.820 Peripheral vascular angioplasty status with implants and grafts | CPT/HCPCS: 99212 ==

== ENCOUNTER → 2020-05-09 15:26 | Outpatient (BNVA) | payer MEDICARE, SELFPAY | PROVIDERS: Visit Provider Internal Medicine | DX: M86.9 Osteomyelitis, unspecified (principal) | CPT/HCPCS: Q3014 ==

== ENCOUNTER → 2020-05-14 10:59 | Outpatient (BNVA) | payer MEDICARE, SELFPAY | PROVIDERS: Visit Provider Internal Medicine | DX: M86.9 Osteomyelitis, unspecified (principal) | CPT/HCPCS: 99212 ==

== ENCOUNTER 2020-05-14 12:47 | Outpatient (RCR) | payer MEDICARE, SELFPAY | END 2020-06-26 13:00 | disposition home or self-care (01) | LOC: HO.WCC 12:47 | PROVIDERS: PCP Family Medicine; Visit Provider Surgery | DX: I70.234 Atherosclerosis of native arteries of right leg with ulceration of heel and midfoot (principal); L97.413 Non-pressure chronic ulcer of right heel and midfoot with necrosis of muscle | CPT/HCPCS: 99213 ==